=== PATIENT | female | born 2000 ===

== ENCOUNTER 2024-10-01 14:39 | Outpatient (AMB) | payer OTHER, SELFPAY ==
--- NOTE | 2024-10-01 14:54 | MHC.OFFWIV ---
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 Patient Tobacco Use Status: Never used Tobacco Allergies No Known Allergies Allergy (Verified 10/01/24 15:02) Do you need a note to return to daycare/school/sports/work: No HPI HPI Comments History of Present Illness Details History of Present Illness - The patient is a 24-year-old female presenting with anxiety and panic attacks. - She experiences frequent hand tremors significant enough to interrupt her ability to hold objects, with each episode lasting about 30 minutes. Denies hand or arm weakness - She describes accompanying symptoms of visual focus difficulty, balancing issues, excessive sweating, and feelings of warmth. - Initially occurring monthly, these episodes have increased to nearly every other day over recent months. - Symptoms can arise unexpectedly now, though earlier they were often triggered by stress or interactions. - The patient feels extreme anxiety and sudden overwhelming worry during these episodes. - No prior treatments by mental health professionals but has consulted a security site supervisor. - Currently stable with no self-harm ideation or homicidal ideation but had thoughts previously. - Recent insurance acquisition but facing challenges securing primary care and blow off worker appointments. - Reports familial hypercholesterolemia concerns, with symptoms like heaviness after eating and persistent headaches. Physical Exam General: Cooperative, healthy appearing, comfortable, no acute distress and well developed Orientation: Patient oriented x3 Limitations: No limitations Head: Normal to inspection Ears: Hearing grossly normal bilaterally Nose: Normal external nose present Face and sinus: normal facial exam Eyes: Appearance normal, both eyes and all related structures Neck: Normal visual inspection and Yes full ROM Respiratory: Normal respiratory effort and able to speak in complete sentences. Skin: No rashes or lesions noted Neuro: Patient oriented x3 Extremities: Normal to inspection [facility] Social History Patient Tobacco Use Status: Never used Tobacco Review of Systems Const All systems reviewed & are unremarkable except as noted in HPI and below Physical Exam Vital Signs: Last Vital Signs Pulse 76 10/01/24 15:00 BP 110/68 10/01/24 15:00 Pulse Ox 98 10/01/24 15:00 Oxygen Delivery Method Room Air 10/01/24 15:00 BMI result Body Mass Index 20.8 Assessment & Plan Assessment & Plan (1) Panic attacks: Code(s): F41.0 - Panic disorder [episodic paroxysmal anxiety] Plan: Patient was advised to schedeul an appointment with a primary care physician was advised. Patient having anxiety and panic attacks. Hydroxyzine prescription was issued to manage anxiety symptoms as needed, with careful dosing instructions to mitigate sedative effects. She was advised on the medication's drying nature and the appropriate dosage limit to avoid excessive sedation. Emphasis was made on the importance of further exploration of her familial risk of hypercholesterolemia during the primary care visit which will be arranged soon. Batsheva, our CHW, gave the patient info on other community resources including the [facility] walk [facility] clinic and the [facility] and other resources which are immediately available to her. [place], [place] Patient was advised to go to ED if she had develops any SI or HI feelings. Patient was informed and verbally consented to the use of an ambient scribe for clinic note documentation during this visit. Medications: New hydroxyzine HCl 10 mg PO Q6-8H PRN 30 tabs 0RF anxiety Coding Level of Care Code New Pt Level 4 (34206) Diagnoses Panic attacks F41.0
[2024-10-01 15:00] VITALS: BP 110/68; PULSE 76; O2SAT 98; BMI 20.8
--- OUTSIDE RECORDS SUMMARY | 2024-10-01 16:46 | XMS_ITS | Clinical Summary ---
Author Organization [facility] Address [address] [place] [address] Phone Care Team Providers Care Gas Welder Name Role Phone Physician, No Pcp Primary Care Provider Unavaila ble Social History Tobacco Use Types Packs/Day Years Used Date Smoking Tobacco: Never Assessed Comments Unknown Sex and Gender Information Value Date Recorded Sex Assigned at Not on file Legal Sex Female 11:39 AM EDT Gender Identity Not on file Sexual Orientation Not on file Plan of Treatment Health Maintenance Due Date Last Done Comments Gonorrhea/Chlamydia Screening 2002 HPV Vaccines (1 - 3-dose series) 2017 Meningococcal B Vacine (1 of 2 - Standard) 2018 DTaP,Tdap,and Td Vaccines (1 - Tdap) 2021 Hepatitis B Vaccines (1 of 3 - 19+ 3-dose series) 2021 Cervical Cancer Screening: P ap Smear 2023 COVID-19 Vaccine ( - 2023-2 5 season) 2024 Influenza Vaccine (#1) 2024 Depression Screening 05/19/2024 HIV Screening 05/19/2024 Hepatitis C Screening 05/19/2024 Social Influencers of Health Screening 05/19/2024 HIB Vaccines Aged Out No longer eligi ble based on patient's age to complete this topic Hepatitis A Vaccines Aged Out No long er eligible based on patient's age to complete this topic IPV Vaccines Aged Out No longer eligi ble based on patient's age to complete this topic MMR Vaccines Aged Out No longer eligi ble based on patient's age to complete this topic Meningococcal ACWY Vaccine Aged Out N o longer eligible based on patient's age to complete this topic Pneumococcal Vaccine: Pediat rics (0 to 5 Years) and At-Risk Patients (6 to 64 Years) Aged Out No longer eligible b ased on patient's age to complete this topic RSV Immunization Patients Un brittany 20 months Aged Out No longer eligible b ased on patient's age to complete this topic Varicella Vaccines Aged Out No longer eligible based on patient's age to complete this topic Care Teams Gas Welder Relationship Specialty Start Date End Date Physician, No Pcp PCP - General 06/02/24
--- OUTSIDE RECORDS SUMMARY | 2024-10-01 16:46 | XMS_ITS | Clinical Summary ---
Author Organization [facility] Address [address] [place] [address] Care Team Providers Care Excellence Coach Name Role Phone Val Parker DMD Primary Care Provider [phone] Source Comments PLEASE NOTE, if this patient is a minor, it may be UNLAWFUL to discuss sensitive information that is contained in these records (such as FAMILY PLANNING, MENTAL HEALTH or SUBSTANCE ABUSE) with the minor patient's parent or other person without the patient's specific authorization.[facility] Medications ibuprofen 800 mg tabletIndications :Tooth infection,Toothac he Take 1 Tablet by mouth 3 (three) times daily as needed for pain 45 Tablet 01/08/2022 Active ibuprofen 600 mg tabletIndications :Asymptomatic irreversible pulpitis Take 1 Tablet by mouth 4 (four) times daily as needed for pain 20 Tablet 01/19/2022 Active ibuprofen 600 mg tabletIndications :Caries Take 1 Tablet by mouth 4 (four) times daily as needed for mild pain 20 Tablet 05/17/2024 Active Active Problems No known active problems Social History Tobacco Use Types Packs/Day Years Used Date Smoking Tobacco: Never Alcohol Use Standard Drinks/Week Comments Never 0 (1 standard drink = 0.6 oz pur e alcohol) Social Connections Answer Date Recorded Connectedness 0 04/13/2024 Financial Resource Strain Answer Date R ecorded Financial Resource Strain 0 2021 Stress Answer Date Recorded Stress 0 01/08/2022 Physical Activity Answer Date Recorded Physical Activity 0 01/08/2022 Food Insecurity Answer Date Recorded Food 0 04/19/2024 Transportation Needs Answer Date Record ed Transportation 0 01/08/2022 Housing Stability Answer Date Recorded Housing 0 01/08/2022 Safety and Environment Answer Date Rich rded Safety 0 01/08/2022 Utilities Answer Date Recorded Utilities 0 01/08/2022 Employment Answer Date Recorded Stress 0 04/13/2024 Comments Unknown Sex and Gender Information Value Date Recorded Sex Assigned at Not on file Legal Sex Female 11:49 AM PDT Gender Identity Not on file Sexual Orientation Not on file Last Filed Vital Signs Vital Sign Reading Time Taken Comments Blood Pressure 128/90 05/17/2024 9:04 AM EDT Pulse 99 05/17/2024 9:04 AM EDT Temperature - - Respiratory Rate - - Oxygen Saturation - - Inhaled Oxygen Concentration - - Weight - - Height - - Body Mass Index - - Plan of Treatment Upcoming Encounters Date Type Department Care Team (Late st Contact Info) Description 10/04/2024 9:00 AM EDT Office Visit [facility] [address] [place] [address] LeonorGaryjasen, [facility] [address] [place] [address] Health Maintenance Due Date Last Done Comments Dental Perio Charting 2002 HPV Screening 2002 Hepatitis C Screening 2002 Pap + HPV 2002 Tobacco Screening 2002 Chlamydia Screening 2015 Gonorrhea Screening 2015 Imm-Varicella (1 of 2 - 13+ 2-dose series) 2015 HIV Screening 2017 Imm-HPV (1 - 3-dose series) 2017 Relationship Safety Screening/Counseling 2017 Imm-Hepatitis B (1 of 3 - 19+ 3-dose series) Cervical Cancer Screening 2023 Pap Smear 2023 [id number] ( season) 2024 Imm-Influenza (#1) 2024 Alcohol and Drug Screen 07/25/2024 Depression Annual Screen 07/25/2024 Dental BW 04/05/2025 04/03/2024 Dental Examination 04/05/2025 04/03/2024 Dental Prophy 04/05/2025 04/03/2024 Hypertension Screening (#1) 05/17/2025 Dental FMX/Pano 02/22/2029 02/21/2024 Imm-DTaP/Tdap/Td (2 - Td or Tdap) 03/25/2032 022 Cervical Ablation/Cold-Knife Conization Discontinued Cervical Cryotherapy Discontinued Colposcopy Discontinued Endometrial Biopsy Discontinued Excision/Leep Discontinued HPV Genotyping Discontinued Vaginal Pap Discontinued Vulvoscopy Discontinued Procedures Procedure Name Priority Date/Time Associated Diagnosis Comments BITEWINGS - FOUR RADIOGRAPHIC IMAGES Routine 04/03/2024 9:00 AM EDT Caries Caries of enamel (incipient) Full PROPHYLAXIS - ADULT Routine 024 9:00 AM EDT Caries Caries of enamel (incipient) Full COMP ORAL EVALUATION - NEW/ESTABLISHED PATIENT Routine 04/03/2024 9:00 AM EDT Caries Caries of enamel (incipient) PANORAMIC RADIOGRAPHIC IMAGE Routine 02/21/2024 4:00 PM EDT TMJ dysfunction from Last 3 Months or Most Recently Relevant to Health Maintenance Insurance [employer] Care Teams Excellence Coach Relationship Specialty Start Date End Date Val Parker DMD [address] [place] [address] PCP - General 04/05/19
== END 2024-10-01 16:50 | disposition home or self-care (01) ==
PROVIDERS: Visit Provider Physician Assistant
DX: F41.0 Panic disorder [episodic paroxysmal anxiety] (principal)

== ENCOUNTER → 2024-10-01 14:39 | Outpatient (BNVA) | payer OTHER, SELFPAY | PROVIDERS: Visit Provider Physician Assistant | DX: F41.0 Panic disorder [episodic paroxysmal anxiety] (principal) | CPT/HCPCS: 99202 ==